=== PATIENT | female | born 1950 | race Caucasian/White ===

== ENCOUNTER 2025-09-16 06:18 | Emergency (ER) | payer OTHER, MEDICAID ==
[~2025-09-16] VITALS: Ht 162.6 cm; Wt 73.0 kg
[2025-09-16 06:27] VITALS: O2SAT 96
[2025-09-16 10:02] VITALS: BP 166/91; PULSE 85; RESP 16; TEMP 36.7; O2SAT 96
== END 2025-09-16 10:03 | disposition home or self-care (01) ==
LOC: ER 06:18
DX: R53.1 Weakness (principal); Z59.00 Homelessness unspecified
CPT/HCPCS: 99282; A4606

== ENCOUNTER 2025-09-22 15:16 | Emergency (ER) | payer OTHER, MEDICAID ==
[~2025-09-22] VITALS: Ht 162.6 cm; Wt 70.0 kg
[2025-09-22 15:26] VITALS: TEMP 36.7; O2SAT 97
[2025-09-22 17:11] VITALS: BP 157/79; PULSE 93; RESP 16; O2SAT 96
== END 2025-09-22 17:37 | disposition home or self-care (01) ==
LOC: ER 15:16
DX: I10 Essential (primary) hypertension (principal)
CPT/HCPCS: 99282

== ENCOUNTER 2025-09-24 04:51 | Emergency (ER) | payer OTHER, MEDICAID ==
[~2025-09-24] VITALS: Ht 162.6 cm; Wt 64.0 kg
[2025-09-24 04:58] VITALS: O2SAT 98
[2025-09-24 05:40] LABS: BASOPHILS % 0.8 % (0.0-2.0); EOSINOPHILS % 2.5 % (0.0-5.0); HEMATOCRIT. 40.8 % (36.0-48.0); HEMOGLOBIN. 13.0 g/dL (12.0-16.0); LYMPHOCYTES % 42.8 % (20.0-50.0); MEAN PLATELET VOLUME 8.8 fl (7.4-10.4); MONOCYTES % 6.2 % (2.0-8.0); NEUTROPHILS % 47.7 % (40.0-76.0); PLATELET 261 x1000/uL (130-400); RED BLOOD CELL COUNT 4.60 mill/uL (4.2-5.4); RED CELL DISTRIBUTION WIDTH 14.4 % (11.6-14.6)
[2025-09-24 06:04] LABS: CREATININE 0.7 mg/dL (0.6-1.0); UREA NITROGEN BLOOD 15 mg/dL (9-23)
[2025-09-24 06:05] LABS: ASPARTATE AMINOTRANSFERASE 25 IU/L (<34); TROPONIN I HIGH SENSITIVITY 18 ng/L (3.0-34)
[2025-09-24 06:06] LABS: BILIRUBIN DIRECT 0.3 mg/dL (<=3.0); BILIRUBIN TOTAL 1.0 mg/dL (0.1-1.0); PROTEIN TOTAL 7.1 g/dL (6.0-8.3)
[2025-09-24 07:30] VITALS: BP 149/60; PULSE 67; RESP 20; TEMP 36.9; O2SAT 10
== END 2025-09-24 10:18 | disposition home or self-care (01) ==
LOC: ER 04:51 → CANBEDREQ 07:54 → ER 10:18
DX: R42 Dizziness and giddiness (principal); I10 Essential (primary) hypertension; R06.02 Shortness of breath
CPT/HCPCS: 36415; 71045; 80048; 80076; 80320; 83880; 84484; 85025; 93005; 99285; G0480